=== PATIENT | male | born 1995 | race Caucasian/White ===

== ENCOUNTER 2019-05-28 00:38 | Emergency (ER) | payer BC ==
[~2019-05-28] VITALS: Ht 188 cm; Wt 75.0 kg
[2019-05-28] MEDS ORDERED: ONDANSETRON 2MG/ML, 2ML ONE (00:45)
--- NOTE | 2019-05-28 00:55 | NUR ---
IV SITE STARTED, IV FLUIDS INFUSING, PT MEDICATED PER MAR. MONITORS APPLIED, SIDERAILS UP X2, CALL LIGHT WITHIN REACH
[2019-05-28] MEDS ORDERED: SODIUM CHLORIDE 0.9% 1,000ML IVBOLUS ONE (01:00)
[2019-05-28] MEDS ORDERED: SODIUM CHLORIDE FLUSH 10ML SYR IVF ONE (01:00)
[2019-05-28] MEDS ORDERED: ONDANSETRON 2MG/ML, 2ML IVPush ONE (01:00)
[2019-05-28 01:48] VITALS: BP 108/66
== END 2019-05-28 01:50 | disposition home or self-care (01) ==
LOC: ED 01:35
DX: F10.120 Alcohol abuse with intoxication, uncomplicated (principal); R11.2 Nausea with vomiting, unspecified; Y90.9 Presence of alcohol in blood, level not specified
CPT/HCPCS: 96361; 96374; 99283; J2405; J7030